=== PATIENT | male | born 1965 | race Caucasian/White ===

== ENCOUNTER 2016-08-02 23:34 | Emergency (ER) | payer OTHER ==
[~2016-08-02 23:34] MED LIST: NAPROSYN500 MG PO
== END 2016-08-03 01:12 | disposition home or self-care (01) ==
LOC: CED 23:34
DX: N48.33 Priapism, drug-induced (principal); E78.5 Hyperlipidemia, unspecified; N52.9 Male erectile dysfunction, unspecified
CPT/HCPCS: 54220; 96372; 99291; J2370; J3105